=== PATIENT | female | born 1970 | race Caucasian/White ===

== ENCOUNTER 2017-05-30 11:17 | Emergency (ER) | payer MEDICAID ==
[2017-05-30 11:31] VITALS: BP 103/60; PULSE 79; RESP 18; TEMP 98.8; O2SAT 99; BMI 21.8
--- NOTE | 2017-05-30 12:03 | ED PDOC ---
Arrival/HPI - General Chief Complaint: Abnormal Skin Integrity Time Seen by Provider: 05/30/17 11:37 - History of Present Illness Narrative History of Present Illness (Text): 05/30/17 12:02 Patient is a 47 y/o F with 2 complaints. She reports that she has had 1 year history of lymph node swelling under her L axilla. 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 She saw her PMD who thought it was an enlarged lymph node and sent her for a mammography and ultrasound that she has not yet gotten. Denies fever , chills, weight loss, eythema or discharge from L axilla swelling. Patient also reports that 1 month ago she developed swelling to her L labia. She reports that the area got swollen and pus came out of the area. She denies associated redness or pain. She reports that she has [facility] follow-up next month. She reports that she has a history of lymphoma in her family and didn't want to wait any longer to be evaluated so came to ED today. Past Medical History - Psychiatric Hx Substance Use: No Family/Social History Family/Social History: Other (lymphoma) Smoking Status: Light Smoker < 10 Cigarettes Daily Hx Alcohol Use: Yes Hx Substance Use: No Allergies/Home Meds Allergies/Adverse Reactions: Allergies No Known Allergies Allergy (Verified 05/30/17 11:46) Review of Systems - Review of Systems Constitutional: absent: Fatigue, Weight Change, Fevers, Night Sweats Eyes: absent: Vision Changes Respiratory: absent: SOB, Cough, Sputum, Wheezing Cardiovascular: absent: Chest Pain, Palpitations, Edema Gastrointestinal: absent: Abdominal Pain Genitourinary Female: Other (swelling to L labia majora that has now resolved). absent: Dysuria, Frequency, Hematuria, Urine Output Changes, Vaginal Bleeding , Vaginal Discharge Musculoskeletal: Other (swelling under L axilla). absent: Arthralgias, Back Pain Neurological: absent: Headache, Dizziness, Focal Weakness, Gait Changes, Speech Changes Endocrine: absent: Diaphoresis Psychiatric: absent: Anxiety, Depression Physical Exam Vital Signs Temp Pulse Resp BP Pulse Ox 05/30/17 11:46 98.8 F 79 18 103/60 99 05/30/17 11:31 98.8 F 79 18 103/60 99 Temperature: Afebrile Blood Pressure: Normal Pulse: Regular Respiratory Rate: Normal Appearance: Positive for: Well-Appearing, Non-Toxic, Comfortable Pain Distress: None Mental Status: Positive for: Alert and Oriented X 3 - Systems Exam Head: Present: Atraumatic, Normocephalic Pupils: Present: PERRL Extroacular Muscles: Present: EOMI Conjunctiva: Present: Normal Mouth: Present: Moist Mucous Membranes Neck: Present: Normal Range of Motion Respiratory/Chest: Present: Clear to Auscultation, Good Air Exchange. No: Respiratory Distress, Accessory Muscle Use Cardiovascular: Present: Regular Rate and Rhythm, Normal S1, S2. No: Murmurs Abdomen: No: Tenderness, Distention Genitourinary/Pelvic Exam: Present: Normal External Genitalia, Other (no evidence of abscess or swelling. no erythema) Back: Present: Normal Inspection Upper Extremity: Present: Normal ROM, NORMAL PULSES, Neurovascularly Intact, Capillary Refill < 2s, Other (mobile swelling consistent with lymph node under L axilla, no fluctulance, no erythema, non-tender). No: Tenderness, Erythema Lower Extremity: Present: Normal Inspection Neurological: Present: GCS=15, CN II-XII Intact, Gait Normal Psychiatric: Present: Alert, Oriented x 3 Medical Decision Making ED Course and Treatment: 05/30/17 13:07 CBC grossly normal. Patient had abscess to external L labia majora that has ruptured and resolved that likely started as area of folliculitis. Patient has 1 year history of lymphadenopathy to L axilla and has mammography and ultrasound of L axilla prescription and will get imaging as outpatient. Patient has [facility] follow-up next month. Patient has good outpatient follow-up and instructed again on importance of compliance. 05/30/17 13:16 - Lab Interpretations Lab Results: 05/30/17 12:39 05/30/17 12:39 Lab Results 05/30/17 12:39: Sodium 141, Potassium 4.1, Chloride 106, Carbon Dioxide 26, Anion Gap 14, BUN 11, Creatinine 0.6 L, Est GFR ( Amer) > 60, Est GFR ( Non-Af Amer) > 60, Random Glucose 83, Calcium 9.7, Total Bilirubin 0.3, AST 33, ALT 32, Alkaline Phosphatase 37 L, Total Protein 7.4, Albumin 4.5, Globulin 2.9 , Albumin/Globulin Ratio 1.5 05/30/17 12:39: WBC 7.1, RBC 3.55 L, Hgb 11.7 L, Hct 34.9, MCV 98.3, MCH 33.0 H , MCHC 33.5, RDW 13.2, Plt Count 280, MPV 8.1, Neut % (Auto) 65.4, Lymph % (Auto ) 25.0, [place] % (Auto) 8.1, Eos % (Auto) 0.9, Baso % (Auto) 0.6, Neut # 4.6, Lymph # 1.8, [place] # 0.6, Eos # 0.1, Baso # 0.0 Disposition/Present on Arrival - Present on Arrival Any Indicators Present on Arrival: No - Disposition Have Diagnosis and Disposition been Completed?: Yes Diagnosis: Swelling in left armpit Disposition: HOME/ ROUTINE Disposition Time: 13:19 Patient Plan: Discharge Condition: GOOD Discharge Instructions (ExitCare): Lymphadenopathy (ED) Additional Instructions: Get your ultrasound and mammography as previously ordered. Follow-up with ordering MD for results. Follow-up with OB next month as scheduled. Return to ED if condition worsens. Forms: [facility] ([place])
[2017-05-30 12:52] LABS: BASO % 0.6 % (0.0-2.0); EOS # 0.1 K/uL (0.0-0.7); EOS % 0.9 % (0.0-4.0); HEMATOCRIT 34.9 % (34.0-47.0); LYMPH # 1.8 K/uL (1.0-4.3); MEAN CELL VOLUME 98.3 fl (81.0-99.0); MEAN CORPUSCULAR HGB CONC 33.5 g/dL (33.0-37.0); MEAN PLATELET VOLUME 8.1 fl (7.2-11.7); MONO # 0.6 K/uL (0.0-0.8); MONO % 8.1 % (0.0-10.0); NEUT # 4.6 K/uL (1.8-7.0); NEUT % 65.4 % (50.0-75.0); RED CELL DISTRIBUTION WIDTH 13.2 % (11.5-14.5); WHITE BLOOD COUNT 7.1 K/uL (4.8-10.8)
[2017-05-30 13:04] LABS: ALB/GLOB RATIO 1.5 (1.0-2.1); ALKALINE PHOSPHATASE 37 U/L (38-126); ALT/SGPT 32 U/L (9-52); AST/SGOT 33 U/L (14-36); BILIRUBIN,TOTAL 0.3 mg/dl (0.2-1.3); BLOOD UREA NITROGEN 11 mg/dl (7-17); CALCIUM 9.7 mg/dL (8.4-10.2); CARBON DIOXIDE 26 mmol/L (22-30); CHLORIDE 106 mmol/L (98-107); GFR AFRICAN-AMERICAN > 60; GLUCOSE,RANDOM 83 mg/dL (65-105); POTASSIUM 4.1 MMOL/L (3.6-5.0); SODIUM 141 mmol/l (132-148); TOTAL PROTEIN 7.4 G/DL (6.3-8.2)
== END 2017-05-30 13:33 | disposition home or self-care (01) ==
LOC: H.ER 11:17
DX: R22.9 Localized swelling, mass and lump, unspecified (principal)

== ENCOUNTER 2018-05-14 13:07 | Emergency (ER) | payer MEDICAID ==
[2018-05-14 13:07] VITALS: BMI 21.8
[2018-05-14 13:22] VITALS: RESP 18; O2SAT 98
[2018-05-14] MEDS ORDERED: Albuterol 0.083% Inhal Sol (2.5 mg/3 mL) UD INH STA (13:38)
[2018-05-14] MEDS ORDERED: Albuterol-Ipratrop 3 mg / 0.5 (3 ml) UD INH STA (13:38)
[2018-05-14] MEDS ORDERED: guaiFENesin 200 mg/10 ml Syrup UD PO STA (13:38)
[2018-05-14] MEDS ORDERED: guaiFENesin 100 mg/5 ml Syrup UD ONE (13:51)
--- NOTE | 2018-05-14 14:03 | ED PDOC ---
HPI: Influenza Time Seen by Provider: 05/14/18 13:14 Chief Complaint: Cough, Cold, Congestion Chief Complaint (Provider): Cough History Per: Patient Onset/Duration Of Symptoms: Other (1.5 weeks) Additional complaint(s):: 47 year old female presents to the ED for evaluation of worsening productive cough for the last week and a half. Patient states her significant other has similar symptoms and is also being evaluated in the ED. Reports productive cough with green phlegm and tactile fever at onset as well as recent travel to [place]. She indicates having Amoxicillin from [place] so patient took 10 doses of 500mg with last one at 08:00 today. Denies chills, ear pain, throat pain, abdominal pain, chest pain, headache, dizziness, nausea, vomiting, diarrhea, or rash. Of note, patient admits to smoking 1.5 packs of cigarettes daily. 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 (Former clean for 5 years) - Home Medications Home Medications: Ambulatory Orders Medication Instructions Recorded Albuterol Sulfate [Ventolin Hfa] 1 puff IH Q4 #1 unit 05/14/18 Azithromycin [Z-Reg] 250 mg PO DAILY #6 tab 05/14/18 Docosanol [Abreva] 1 applic TP QID #1 tube 05/14/18 Promethazine DM [Phenergan DM 5 ml PO Q6 PRN #150 ml 05/14/18 Syrup] - Allergies Allergies/Adverse Reactions: Allergies Allergy/AdvReac Type Severity Reaction Status Date / Time No Known Allergies Allergy Verified 05/14/18 13:20 Review of Systems ROS Statement: Except As Marked, All Systems Reviewed And Found Negative Constitutional: Negative for: Fever, Chills ENT: Negative for: Ear Pain, Throat Pain Cardiovascular: Negative for: Chest Pain Respiratory: Positive for: Cough Gastrointestinal: Negative for: Nausea, Vomiting, Abdominal Pain, Diarrhea Skin: Negative for: Rash Neurological: Negative for: Headache, Dizziness Physical Exam - Reviewed Nursing Documentation Reviewed: Yes Vital Signs Reviewed: Yes - Physical Exam Comments: GENERAL APPEARANCE: Patient is awake, alert, oriented x 3, in no acute distress. Resting comfortably and speaking in full sentences. SKIN: Warm, dry; (-) cyanosis. ENMT: Mucous membranes moist. Airway patent: (-) stridor. Pharynx: clear, uvula midline (-) erythema, (-) exudate. TMs: nonbulging, nonerythematous bilaterally. Nares: patent. (-) sinus tenderness. NECK: Supple, FROM (-) tenderness, (-) stiffness, (-) lymphadenopathy. CHEST AND RESPIRATORY: (+) scattered rhonchi, (-) rales, (-) wheezes; breath sounds decreased bilaterally. Respirations even and nonlabored. HEART AND CARDIOVASCULAR: (-) irregularity ABDOMEN AND GI: Soft; (-) tenderness (-) guarding (-) distention. EXTREMITIES: (-) deformity; (-) edema. NEURO AND PSYCH: Mental status as above. Cranial nerves grossly intact; strength symmetric. EOMI. Gait: steady. Speech: clear. (-) facial asymmetry (-) aphasia (-) focal findings Medical Decision Making Medical Decision Making: Initial Impression: Acute cough, probable bronchitis Initial Plan: --Chest X-ray -- test --Albuterol 2.5mg INH --Duoneb INH --Robitussin 200mg PO --Re-evaluation --Patient counselled on smoking cessation Upreg: negative 1450 Date of service: 05/14/2018 HISTORY: cough x2 weeks COMPARISON: No prior. TECHNIQUE: Chest PA and lateral FINDINGS: LUNGS: No active pulmonary disease. PLEURA: No significant pleural effusion identified. No pneumothorax apparent. CARDIOVASCULAR: Normal. OSSEOUS STRUCTURES: No significant abnormalities. VISUALIZED UPPER ABDOMEN: Normal. OTHER FINDINGS: None. IMPRESSION: No active disease. Given rhonchi on exam and history of heavy smoking, Azithromycin 500mg PO ordered for clinical bronchitis. Patient also requesting an Rx for Abreva at this time as she feels a cold sore developing. 1515 On re-evaluation, patient reports improvement of symptoms. On exam, patient remains AAOx3, in no acute distress. Lungs clear to auscultation, cardiac RRR, repeat neuro exam shows no focal findings. Vitals stable. Lab/Diagnostic results d/w the patient in great detail. Diagnosis of acute cough, tobacco abuse, bronchitis d/w the patient. Based on history, exam and diagnostic results, plan will be for outpatient follow up. Patient instructed to follow-up with pmd / referral provided / the clinic in 1- 2 days without fail. Advised to take medication as prescribed. Return to the emergency room at any time for any new or worsening symptoms. Patient states she fully agrees with and understands discharge instructions. States that she agrees with the plan and disposition. Verbalized and repeated discharge instructions and plan. I have given the patient opportunity to ask any additional questions. Scribe Attestation: Documented by Ed Santiago acting as a scribe for Demetra LYNN. Provider Scribe Attestation: All medical record entries made by the Scribe were at my direction and pe rsonally dictated by me. I have reviewed the chart and agree that the record accurately reflects my personal performance of the history, physical exam, medical decision making, and the department course for this patient. I have also personally directed, reviewed, and agree with the discharge instructions and disposition. - Laboratory Results Urine POC: Negative - ECG O2 Sat by Pulse Oximetry: 98 (RA) Pulse Ox Interpretation: Normal Disposition - Clinical Impression Clinical Impression: Cough in adult patient, Tobacco abuse, Acute bronchitis, Congestion of upper respiratory tract - Patient ED Disposition Is Patient to be Admitted: No Counseled Patient/Family Regarding: Studies Performed, Diagnosis, Need For Followup, Rx Given, Smoking Cessation - Disposition Referrals: [facility] [Outside] Disposition: Routine/Home Disposition Time: 15:17 Condition: STABLE Additional Instructions: The emergency medical care you received today was directed at your acute symptoms. If you were prescribed any medication, please fill it and take as directed. It may take several days for your symptoms to resolve. Return to the Emergency Department if your symptoms worsen, do not improve, or if you have any other problems. Please contact your doctor in 2 days for re-evaluation and follow up / or call one of the physicians/clinics you have been referred to that are listed on the Patient Visit Information form that is included in your discharge packet. Bring any paperwork you were given at discharge with you along with any medications you are taking to your follow up visit. Our treatment cannot replace ongoing medical care by a primary care provider (PCP) outside of the emergency department. Prescriptions: Albuterol Sulfate [Ventolin Hfa] 1 puff IH Q4 #1 unit Azithromycin [Z-Reg] 250 mg PO DAILY #6 tab Docosanol [Abreva] 1 applic TP QID #1 tube Promethazine DM [Phenergan DM Syrup] 5 ml PO Q6 PRN #150 ml PRN Reason: Cough Instructions: Cough in Adults, Smoking: Not Just Harmful to Your Lungs and Heart, Acute Bronchitis, Bacterial Upper Respiratory Infection, Adult Forms: [facility] (Faroese) Print Language: TRINIDADIAN - POA Present On Arrival: None
--- NOTE | 2018-05-14 14:30 | RAD ---
Date of service: 05/14/2018 HISTORY: cough x2 weeks COMPARISON: No prior. TECHNIQUE: Chest PA and lateral FINDINGS: LUNGS: No active pulmonary disease. PLEURA: No significant pleural effusion identified. No pneumothorax apparent. CARDIOVASCULAR: Normal. OSSEOUS STRUCTURES: No significant abnormalities. VISUALIZED UPPER ABDOMEN: Normal. OTHER FINDINGS: None. IMPRESSION: No active disease.
[2018-05-14 17:01] VITALS: BP 100/68; PULSE 78; TEMP 98
== END 2018-05-14 15:50 | disposition home or self-care (01) ==
LOC: H.ER 13:07
DX: R05 Cough (principal); F17.200 Nicotine dependence, unspecified, uncomplicated; J20.9 Acute bronchitis, unspecified; J06.9 Acute upper respiratory infection, unspecified